=== PATIENT | male | born 1960 | race Caucasian/White ===

== ENCOUNTER 2016-04-21 11:41 | Emergency (ER) | payer OTHER ==
[2016-04-21] MEDS ORDERED: DIPH,PERTUS(ACELL)TETVAC-LF 0.5 ML VIAL IM ONE (12:30)
[2016-04-21] MEDS ORDERED: GELATIN SPONGE,ABSORB (SMALL) 1 EACH SPONGE TOPICAL STA (12:41)
--- NOTE | 2016-04-21 12:52 | XR ---
EXAMINATION TYPE: XR finger LT DATE OF EXAM: 04/21/2016 12:48 PM CLINICAL HISTORY: pain TECHNIQUE: 3 views of the 5th digit are submitted. COMPARISON: None FINDINGS: There is a virtually nondisplaced subungual tuft fracture of the left fifth digit. Soft tis divya laceration is noted. IMPRESSION: Fracture
[2016-04-21] MEDS ORDERED: ceFAZolin 1,000 MG VIAL IM STA (13:15)
[2016-04-21 13:28] VITALS: BP 160/95; PULSE 80; RESP 16; TEMP 97.6
--- NOTE | 2016-04-21 13:41 | ED ---
General Adult HPI - General Chief complaint: Wound/Laceration Stated complaint: laceration, [facility] Time Seen by Provider: 04/21/16 12:24 Source: patient, RN notes reviewed Mode of arrival: ambulatory Limitations: no limitations - History of Present Illness Initial comments: Patient is 55-year-old male who presents emergency room today with a chief complaint of an injury to the right pinky finger. States he got pinched between 2 machines at work. States they cause laceration. States is unsure of his tetanus status. He denies any other complaints associated symptoms. Patient denies any recent fever, chills, shortness of breath, chest pain, back pain, abdominal pain, nausea or vomiting, numbness or tingling, dysuria or hematuria, constipation or diarrhea, headaches or visual changes, or any other complaints. - Related Data Home Medications Medication Instructions Recorded Confirmed Aspirin [Adult Low Dose Aspirin EC] 81 mg PO DAILY 03/06/15 04/21/16 Previous Rx's Medication Instructions Recorded Cephalexin [Keflex] 500 mg PO Q12HR 10 Days 04/21/16 Allergies Allergy/AdvReac Type Severity Reaction Status Date / Time No Known Allergies Allergy Verified 04/21/16 12:27 Review of Systems ROS Statement: Those systems with pertinent positive or pertinent negative responses have been documented in the HPI. ROS Other: All systems not noted in ROS Statement are negative. Past Medical History Past Medical History: No Reported History Additional Past Medical History / Comment(s): back pain History of Any Multi-Drug Resistant Organisms: None Reported Past Surgical History: No Surgical Hx Reported Past Psychological History: No Psychological Hx Reported Smoking Status: Never smoker Past Alcohol Use History: None Reported Past Drug Use History: None Reported General Exam - General Exam Comments Initial Comments: General: The patient is awake and alert, in no distress, and does not appear acutely ill. Neck: The neck is supple, there is no tenderness or JVD. Cardiovascular: There is a regular rate and rhythm. No murmur, rub or gallop is appreciated. Respiratory: Lungs are clear to auscultation, respirations are non-labored, breath sounds are equal. No wheezes, stridor, rales, or rhonchi. Musculoskeletal: Full range motion. Sensation intact pulses equal bilaterally 2 +. Neurological: A&O x 3. CN II-XII intact, There are no obvious motor or sensory deficits. Coordination appears grossly intact. Speech is normal. Skin: Avulsion laceration to the volar aspect of the distal right fifth digit. Mild venous oozing. Psychiatric: Normal mood and affect. Limitations: no limitations Course Vital Signs 04/21/16 04/21/16 11:59 13:27 Temperature 98.5 F 97.6 F Pulse Rate 85 80 Respiratory 20 16 Rate Blood Pressure 181/106 160/95 O2 Sat by Pulse 96 97 Oximetry Procedures - Procedures Initial comment: Patient's fifth digit was anesthetized at the head of the metacarpals with 1% lidocaine. Wound was irrigated heavily with pressure with saline. Gelfoam used to control bleeding and cover the wound with non-stick sterile dressing. Medical Decision Making - Medical Decision Making X-rays reviewed and does show a fracture of the distal phalanx of the fifth digit of the left hand. Patient's tetanus updated here in the emergency room. Patient given a shot of Ancef. Will be continued on antibiotics advised follow- up with orthopedics over the next 2 days. Eyes return to emergency room if there is any increase or worsen his symptoms. Disposition Clinical Impression: Laceration Disposition: HOME SELF-CARE Condition: Good Instructions: Laceration (ED) Additional Instructions: Please follow-up with orthopedics over the next 2 days. Please change dressing at least once daily. Please return to emergency room if any symptoms increase or worsen or for any other concerns. Please use antibiotic as prescribed. Prescriptions: Cephalexin [Keflex] 500 mg PO Q12HR 10 Days Referrals: Omar Garcia MD [Primary Care Provider] - 1-2 days Cristel Christensen DO [Doctor of Osteopathic Medicine] - 1-2 days Time of Disposition: 13:40
== END 2016-04-21 13:55 | disposition home or self-care (01) ==
LOC: EC 11:41
DX: S61.216A Laceration without foreign body of right little finger without damage to nail, initial encounter (principal); W31.9XXA Contact with unspecified machinery, initial encounter; Y99.0 Civilian activity done for income or pay; Z79.82 Long term (current) use of aspirin; Z23 Encounter for immunization
CPT/HCPCS: 73140; 90715; 90471; 99283; 96372; J0690

== ENCOUNTER 2017-05-29 08:21 | Day surgery (SDC) | payer BC ==
[2017-05-25 09:20] VITALS: BMI 34.2
[~2017-05-29 08:21] MED LIST: LACTATED RINGERS 1,000 ML IV SCH
[2017-05-29 09:07] VITALS: TEMP 97.7
[2017-05-29] MEDS ORDERED: PROPOFOL 10 MG/ML 20 ML VIAL IV ONE (09:08)
--- NOTE | 2017-05-29 09:14 | P.GSHP ---
History of Present Illness H&P Date: 05/29/17 Chief Complaint: GERD, GI bleed This a 56-year-old male referred from Dr. Suzette akers. Patient is today for EGD and colonoscopy. He's had issues with GERD and GI bleed. Past Medical History Past Medical History: Chest Pain / Angina, GERD/Reflux, Hypertension Additional Past Medical History / Comment(s): back pain, seen in [facility] in 2016 for chest pain-work up WNL per pt., hx. kidney stones, occasional blood in stools, finishing use of inhaler for cough History of Any Multi-Drug Resistant Organisms: None Reported Past Surgical History: Tonsillectomy Additional Past Surgical History / Comment(s): colonoscopy Past Anesthesia/Blood Transfusion Reactions: No Reported Reaction Smoking Status: Former smoker - Past Family History Mother Family Medical History: Diabetes Mellitus Medications and Allergies Home Medications Medication Instructions Recorded Confirmed Type Aspirin [Adult Low Dose Aspirin EC] 81 mg PO DAILY 03/06/15 05/29/17 History Fluticasone/Vilanterol [Breo 1 inhalation PO Q24HR 05/25/17 05/29/17 History Ellipta 100-25 Mcg Inhaler] Lisinopril [Zestril] 10 mg PO DAILY 05/25/17 05/29/17 History Multivitamin [Men's Multi-Vitamin] 1 each PO DAILY 05/25/17 05/29/17 History Omeprazole [PriLOSEC] 40 mg PO DAILY 05/25/17 05/29/17 History Allergies Allergy/AdvReac Type Severity Reaction Status Date / Time No Known Allergies Allergy Verified 05/25/17 08:56 Surgical - Exam Vital Signs Temp Pulse Resp BP Pulse Ox 97.7 F 69 16 140/91 99 05/29/17 08:56 05/29/17 08:56 05/29/17 08:56 05/29/17 08:56 05/29/17 08:56 - General well developed, no distress - Eyes PERRL - ENT normal pinna - Neck no masses - Respiratory normal expansion - Cardiovascular Rhythm: regular - Abdomen Abdomen: soft, non tender Assessment and Plan Assessment: GERD, GI bleed. We'll perform EGD and colonoscopy.
--- NOTE | 2017-05-29 09:27 | P.OP ---
Date of Procedure: 05/29/17 Preoperative Diagnosis: GERD GI bleed Postoperative Diagnosis: Antral gastritis No significant hiatal hernia Mild esophagitis Diverticulosis External hemorrhoids Procedure(s) Performed: EGD Colonoscopy Anesthesia: MAC Surgeon: Ronaldo Cordon Pathology: other (Antrum, esophagus) Condition: stable Disposition: PACU Description of Procedure: The patient's placed on the endoscopy table lateral position. He received IV sedation. The gastroscope placed oropharynx passed in the esophagus and the stomach. Scope was then placed through the pylorus. The first and second portion of the duodenum appeared normal. Scope was then brought back the antrum this. Inflamed. A biopsies performed. The scope was retroflexed and remainder stomach appeared normal. There was no significant hiatal hernia. The GE junction was at 40 cm. The distal esophagus appeared minimally inflamed a biopsies performed. The proximal esophagus appeared normal. Scope was withdrawn for patient. Next digital rectal exam was performed which revealed external hemorrhoids. The prostate was symmetric without nodules. The flexible colonoscope was then placed patient anus passed throughout the entire colon. The ileocecal valve was visualized. The cecum, ascending and transverse colon appeared normal. In the descending and sigmoid colon there was evidence of diverticular changes. The scope was then brought back the rectum this appeared normal. Scope was withdrawn from patient.
[2017-05-29 09:50] VITALS: BP 119/70; PULSE 62; RESP 16
== END 2017-05-29 10:20 | disposition home or self-care (01) ==
LOC: ORWHC2ENDO 08:21
PROVIDERS: ATTEND Surgery
DX: K29.50 Unspecified chronic gastritis without bleeding (principal); K20.0 Eosinophilic esophagitis; K21.9 Gastro-esophageal reflux disease without esophagitis; I20.9 Angina pectoris, unspecified; I10 Essential (primary) hypertension; Z87.891 Personal history of nicotine dependence; Z79.82 Long term (current) use of aspirin; Z79.51 Long term (current) use of inhaled steroids; Z79.899 Other long term (current) drug therapy
CPT/HCPCS: 88305; 45378; 43239; J2704